=== PATIENT | female | born 1960 | race Caucasian/White ===

== ENCOUNTER 2017-01-13 18:50 | Emergency (ER) ==
[2017-01-13 18:56] VITALS: BP 106/82; TEMP 97.1; BMI 32.1
[2017-01-13] MEDS ORDERED: CLARITIN PO STA (19:05)
[2017-01-13] MEDS ORDERED: SOLU-MEDROL 125 MG IM STA (19:05)
--- NOTE | 2017-01-13 19:20 | ED.PDOC ---
General ED Provider: Dr. ZEN GUITERREZ Chief Complaint: Rash Stated Complaint: Patient is a 56 year old female who states that she while was fixing dinner, suddenly began to break out in a rash covering her body. The rash was itchy. 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 Patient states that she did not get out and walk in the field. Patient states they have no changed any products in their home. Time Seen by Physician: 19:16 Mode of Arrival: Walk-In Information Source: Patient Primary Care Provider: ALINE PINA Nursing and Triage Documentation Reviewed and Agree: Yes Skin Complaint Exam - Skin Rash/Itching Complaint/Exam Onset/Duration: 1 day Symptoms Are: Still present Location: Extremities upper chest Potential Exposures: Reports: Unknown Prior Treatment: Bendryl Aggravating: Reports: None Alleviating: Reports: None Associated Signs and Symptoms: Denies: Difficulty breathing, Fever, Chills Skin Findings: Present: Urticaria Differential Diagnoses: Contact Dermatitis, Urticaria Review of Systems - Review Of Systems Constitutional: Reports: No symptoms Eyes: Reports: No symptoms Ears, Nose, Mouth, Throat: Reports: No symptoms Respiratory: Reports: No symptoms Cardiac: Reports: No symptoms GI: Reports: No symptoms : Reports: No symptoms Musculoskeletal: Reports: No symptoms Skin: Reports: Rash Neurological: Reports: No symptoms Endocrine: Reports: No symptoms Hematologic/Lymphatic: Reports: No symptoms All Other Systems: Reviewed and Negative Past Medical History - Past Medical History Previously Healthy: Yes Endocrine: Reports: Hypothyroid Cardiovascular: Reports: Hypertension Respiratory: Reports: None Hematological: Reports: None Gastrointestinal: Reports: None Genitourinary: Reports: None Neuro/Psych: Reports: None Musculoskeletal: Reports: None Cancer: Reports: None Last Menstrual Period: POST MENOPAUSAL - Surgical History General Surgical History: Reports: Cholecystectomy - Family History Family History: Reports: None - Social History Smoking Status: Never smoker Hx Substance Use: No Alcohol Screening: None - Immunizations Tetanus Shot up to Date: No Physical Exam - Physical Exam Appearance: Well-appearing, No pain distress, Well-nourished Eyes: ALAYNA, EOMI, Conjunctiva clear ENT: Ears normal, Nose normal, Oropharynx normal Neck: Supple Respiratory: Airway patent, Breath sounds clear, Breath sounds equal, Respirations nonlabored Cardiovascular: RRR, Pulses normal, No rub, No murmur GI/: Soft, Nontender, No masses, Bowel sounds normal, No Organomegaly Musculoskeletal: Normal strength, ROM intact, No edema, No calf tenderness Skin: Warm, Dry Neurological: Sensation intact, Motor intact, Reflexes intact, Cranial nerves intact, Alert, Oriented Psychiatric: Anxious Critical Care Note - Critical Care Note Total Time (mins): 0 Course - Course Orders, Labs, Meds: Orders Category Date Time Status Loratadine [Claritin] MEDS 01/13/17 19:05 Discontinued 10 mg PO ONCE STA Methylprednisolone Sod Succ/Pf [Solu-Medrol 125 mg] MEDS 01/13/17 19:05 Discontinued 125 mg IM ONCE STA Medications Discontinued Medications Generic Name Dose Route Start Last Admin Trade Name Freq PRN Reason Stop Dose Admin Loratadine 10 mg 01/13/17 19:05 01/13/17 19:20 Claritin PO 01/13/17 19:06 10 mg ONCE STA Administration Methylprednisolone Sodium Succinate 125 mg 01/13/17 19:05 01/13/17 19:20 Solu-Medrol 125 Mg IM 01/13/17 19:06 125 mg ONCE STA Administration Vital Signs: Temp Pulse Resp BP Pulse Ox 01/13/17 18:50 97.1 F L 97 H 18 106/82 95 Departure - Departure Time of Disposition: 19:41 Disposition: HOME SELF-CARE Discharge Problem: Urticaria Instructions: Urticaria (ED) Condition: Fair Pt referred to PMD for follow-up: Yes Additional Instructions: Take medications as prescribed Continue home Benadryl and OTC claritn Follow up with PCP in 3 days Prescriptions: Methylprednisolone [Medrol Dosepak] 4 mg PO DIRECTED #1 pkg Allergies/Adverse Reactions: Allergies No Known Allergies Allergy (Unverified 01/13/17 18:55) Home Medications: Ambulatory Orders Levothyroxine Sodium [Synthroid] 25 mg PO DAILY 01/13/17 Lisinopril/Hydrochlorothiazide [Lisinopril-Hctz 20-25 mg Tab] 1 tab PO DAILY 08/01 Methylprednisolone [Medrol Dosepak] 4 mg PO DIRECTED #1 pkg 01/13/17 Sertraline HCl [Zoloft] 25 mg PO DAILY 01/13/17 Disposition Discussed With: Patient, Family
== END 2017-01-13 19:44 | disposition home or self-care (01) ==
LOC: ED 18:50
DX: L50.9 Urticaria, unspecified (principal)
CPT/HCPCS: 96372; 99282

== ENCOUNTER 2017-01-23 11:18 | Emergency (ER) ==
[2017-01-23 11:26] VITALS: BP 121/73; TEMP 98.8; BMI 33.8
[2017-01-23 12:31] LABS: BILIRUBIN,URINE Negative (NEGATIVE); KETONES,URINE Negative (NEGATIVE); LEUKOCYTE ESTERASE ,URINE Negative (NEGATIVE); NITRITE,URINE Negative (NEGATIVE); PH,URINE 7.5 (5-9); PROTEIN,URINE Negative (NEGATIVE); URINE, BLOOD Negative (NEGATIVE)
[2017-01-23 12:32] LABS: ADD URINE MICROSCOPIC NO
[2017-01-23 12:37] LABS: HEMATOCRIT 38.5 % (37.0-47.0); HEMOGLOBIN 12.8 g/dl (12.0-16.0); MEAN CORPUSCULAR HGB CONC 33.2 (31.8-35.4); MEAN CORPUSCULAR VOLUME 90.2 fl (81.0-99.0); PLATELET COUNT 191 10^3/uL (140-440); RED BLOOD COUNT 4.27 10^6/ul (4.20-5.40); WHITE BLOOD COUNT 8.82 K/ul (4.6-10.2)
[2017-01-23 12:44] LABS: MONO INTERNAL QC INTERNAL QC VALID
[2017-01-23 12:50] LABS: ANISOCYTOSIS NOT PRESENT (NOT PRESENT)
[2017-01-23 13:03] LABS: ALBUMIN 3.4 g/dL (3.4-5.0); ALBUMIN/GLOBULIN RATIO 0.92; ANION GAP 15.2; BILIRUBIN,TOTAL 0.35 mg/dL (0.00-1.20); BUN/CREATININE RATIO 17.1; CALCIUM 8.9 mg/dL (8.2-10.2); CREATININE 0.76 mg/dL (0.60-1.30); POTASSIUM 4.2 mmol/L (3.5-5.10); TOTAL PROTEIN 7.1 g/dL (6.4-8.2)
--- NOTE | 2017-01-23 13:15 | DI ---
EXAM: CHEST FRONTAL AND LATERAL VIEWS HISTORY: Cough. COMPARISON: None FINDINGS: Heart size and mediastinal contour within normal limits. No acute infiltrates. Avelina l vascularity with no pleural fluid or pneumothorax. The bony thorax has no acute finding. IMPRESSION: No acute process.
--- NOTE | 2017-01-23 13:22 | ED.PDOC ---
General ED Provider: Dr. JOSE BILLINGSLEY Chief Complaint: Non-specific Complaint Stated Complaint: weakness/ fatigue Time Seen by Physician: 11:30 (weakness ) Mode of Arrival: Walk-In Information Source: Patient Exam Limitations: No limitations Primary Care Provider: ALINE PINA Nursing and Triage Documentation Reviewed and Agree: Yes Neurological Complaint Exam - Weakness Complaint/Exam Last Known Well: 1 week Onset: Gradual Symptoms Are: Still present Timing: Constant Episodes Lasting: Days Initial Severity: Moderate Current Severity: Moderate Character: Reports: Weak Aggravating: Reports: None Alleviating: Reports: None Associated Signs and Symptoms: Reports: Nausea. Denies: Vomiting, Diaphoresis, Tinnitus, Chest pain, Short of air, Palpitations, Unsteady gait, GI blood loss, Visual changes, Decreased oral intake, Change in medication, Change in diet, OTC meds, Loss of balance Related History: Similar episode Cardiac Risk Factors: Reports: None CVA Risk Factors: Reports: None Related Surgical History: Reports: None JVD Present: No Carotid Bruit Present: No Rectal Heme Positive: No Glascow Coma Scale (see protocol): 15 Nystagmus Present: No Gag Reflex Present: No Meningeal Signs Positive: No Focal Weakness: Present: None Focal Sensory Loss: Present: None Gait: Normal Quality Indicators for Cardiac Chest Pain: EKG in 10min. Quality Indicators for AMI: EKG in 10min. Quality Indicator For Non-Traumatic Chest Pain/Syncope: EKG Performed Review of Systems - Review Of Systems Constitutional: Reports: Weakness Eyes: Reports: No symptoms Ears, Nose, Mouth, Throat: Reports: No symptoms Respiratory: Reports: No symptoms Cardiac: Reports: No symptoms GI: Reports: No symptoms : Reports: No symptoms Musculoskeletal: Reports: No symptoms Skin: Reports: No symptoms Neurological: Reports: No symptoms Endocrine: Reports: No symptoms Hematologic/Lymphatic: Reports: No symptoms All Other Systems: Reviewed and Negative Past Medical History - Past Medical History Previously Healthy: Yes Endocrine: Reports: Hypothyroid Cardiovascular: Reports: Hypertension Respiratory: Reports: None Hematological: Reports: None Gastrointestinal: Reports: None Genitourinary: Reports: None Neuro/Psych: Reports: None Musculoskeletal: Reports: None Cancer: Reports: None Last Menstrual Period: two years ago - Surgical History General Surgical History: Reports: Cholecystectomy - Family History Family History: Reports: None - Social History Smoking Status: Never smoker Hx Substance Use: No Alcohol Screening: None - Immunizations Tetanus Shot up to Date: No Physical Exam - Physical Exam Appearance: Well-appearing, No pain distress, Well-nourished Eyes: ALAYNA, EOMI, Conjunctiva clear ENT: Ears normal, Nose normal, Oropharynx normal Respiratory: Airway patent, Breath sounds clear, Breath sounds equal, Respirations nonlabored Cardiovascular: RRR, Pulses normal, No rub, No murmur GI/: Soft, Nontender, No masses, Bowel sounds normal, No Organomegaly Musculoskeletal: Normal strength, ROM intact, No edema, No calf tenderness Skin: Warm, Dry, Normal color Neurological: Sensation intact, Motor intact, Reflexes intact, Cranial nerves intact, Alert, Oriented Psychiatric: Affect appropriate, Mood appropriate 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 Rhythm: Sinus Ectopy: None - EKG Interpretation Rate: Normal Rhythm: Sinus Critical Care Note - Critical Care Note Total Time (mins): 0 Course - Course Hematology/Chemistry: 01/23/17 12:25 01/23/17 12:25 Orders, Labs, Meds: Lab Review 01/23/17 01/23/17 12:20 12:25 WBC 8.82 RBC 4.27 Hgb 12.8 Hct 38.5 MCV 90.2 MCH 30.0 MCHC 33.2 RDW Coeff of Jarred 13.7 Plt Count 191 Neutrophils % (Manual) 39.0 L Lymphocytes % (Manual) 49.0 Monocytes % (Manual) 5.0 Reactive Lymphocytes 7.0 H Plt Morphology Comment Normal Anisocytosis Not present Sodium 136 Potassium 4.2 Chloride 102 Carbon Dioxide 23 Anion Gap 15.2 BUN 13 Creatinine 0.76 Estimated GFR (MDRD) 79.00 BUN/Creatinine Ratio 17.10 Glucose 114 H Calcium 8.9 Total Bilirubin 0.35 AST 42 H ALT 60 Alkaline Phosphatase 92 Total Protein 7.1 Albumin 3.4 Globulin 3.7 Albumin/Globulin Ratio 0.92 Urine Color Yellow Urine Clarity Clear Urine pH 7.5 Ur Specific Carbon 1.015 Urine Protein Negative Urine Glucose (UA) Negative Urine Ketones Negative Urine Blood Negative Urine Nitrite Negative Urine Bilirubin Negative Urine Urobilinogen 0.2 Ur Leukocyte Esterase Negative Infectious Vilas Assay Negative Orders Category Date Time Status EKG-(ED ONLY) Stat CARDIO 01/23/17 12:07 Completed CBC W/ AUTO DIFF Stat LAB 01/23/17 12:25 Completed COMPREHENSIVE METABOLIC PANEL Stat LAB 01/23/17 12:25 Completed FREE T4 (FREE THYROXINE) Stat LAB 01/23/17 12:25 Received MANUAL DIFFERENTIAL Stat LAB 01/23/17 12:25 Completed MONONUCLOSIS SCREEN Stat LAB 01/23/17 12:25 Completed THYROID STIMULATING HORMONE Stat LAB 01/23/17 12:25 Received URINALYSIS C & S IF INDICATED Stat LAB 01/23/17 12:20 Completed CHEST, 2 VIEWS PA & LAT Stat RADS 01/23/17 12:06 Completed Vital Signs: Temp Pulse Resp BP Pulse Ox 01/23/17 11:23 98.8 F 111 H 20 121/73 96 Departure - Departure Time of Disposition: 13:23 Disposition: HOME SELF-CARE Discharge Problem: Weakness Instructions: Weakness (ED), Kidney Stones (ED) Condition: Good Pt referred to PMD for follow-up: No Additional Instructions: Please call your Family Physician as soon as possible to schedule a follow-up appointment. Allergies/Adverse Reactions: Allergies Penicillins Adverse Reaction (Verified 01/23/17 11:28) Sulfa (Sulfonamide Antibiotics) Adverse Reaction (Verified 01/23/17 11:28) Home Medications: Ambulatory Orders Levothyroxine Sodium [Synthroid] 25 mg PO DAILY 01/13/17 Lisinopril/Hydrochlorothiazide [Lisinopril-Hctz 20-25 mg Tab] 1 tab PO DAILY 08/01 Sertraline HCl [Zoloft] 25 mg PO DAILY 01/13/17 Disposition Discussed With: Patient
== END 2017-01-23 13:25 | disposition home or self-care (01) ==
LOC: ED 11:18
DX: R53.1 Weakness (principal); R53.83 Other fatigue; R11.0 Nausea; I10 Essential (primary) hypertension; E03.9 Hypothyroidism, unspecified
CPT/HCPCS: 36415; 80053; 81001; 84439; 84443; 85007; 85025; 86308; 93005; 93010; 99283